=== PATIENT | female | born 1995 | race African-American/Black ===

== ENCOUNTER 2017-12-20 14:52 | Inpatient (IN) ==
[2017-12-20] MEDS: LACTATED RINGERS 1,000 ML IV SCH (15:20)
[2017-12-20] MEDS ORDERED: LACTATED RINGERS 500 ML IV PRN (15:28)
[2017-12-20] MEDS ORDERED: DINOPROSTONE VAG GEL 10 MG SYRINGE VAG ONE (15:32)
[2017-12-20 16:00] LABS: Basophils % 0.3 % (0.0-0.8); Eosinophils # 0.1 10*3/uL (0.0-0.87); Eosinophils % 0.8 % (0.00-10.9); Hematocrit 36.5 VOL% (35.7-47.0); Hemoglobin 11.9 GM/DL (12.0-16.0); Immature Granulocytes % 0.6 %; Immature Granulocytes Absolute 0.04 #; Lymphocytes # 1.3 10*3/uL (1.4-4.0); Mean Corpuscular HGB Conc 32.6 GM/DL (32-36); Mean Corpuscular Hemoglobin 31 PG (27-34); Mean Corpuscular Volume 95.5 FL (87-102); Mean Platelet Volume 10.4 FL (9.6-12.0); Monocytes # 0.5 10*3/uL (0.11-0.8); Monocytes % 8.4 % (1.7-12.7); Neutrophils # 4.3 10*3/uL (1.4-7.4); Neutrophils % 68.9 % (38.7-73.9); Platelet Count 251 T/CUMM (130-400); Red Blood Count 3.82 MC/CUMM (3.8-5.5); Red Cell Distribution Width 14.1 % (9.3-17.3); White Blood Count 6.3 T/CUMM (4-12)
[2017-12-20 16:23] LABS: Albumin 3.1 G/DL (3.4-5.0); Bilirubin,Total 0.4 MG/DL (0.2-1.0); Calcium 9.1 MG/DL (8.5-10.1); Osmolality,Calculated 272.8 MOS/KG (273-304); Total Protein 7.1 G/DL (6.4-8.3)
[2017-12-21] MEDS: MEPERIDINE 50 MG/1 ML VIAL IV PRN ×3 (00:33→04:55)
[2017-12-21] MEDS: ONDANSETRON 4 MG/2 ML VIAL IV PRN ×4 (00:34→19:36)
[2017-12-21] MEDS ORDERED: AMPICILLIN INJ 2,000 MG in SODIUM CHLORIDE 0.9% 100 ML IV ONE (02:00)
[2017-12-21] MEDS ORDERED: OXYTOCIN/LR 20 UNIT/1,000 ML BAG IV SCH (02:00)
[2017-12-21] MEDS ORDERED: FAMOTIDINE 20 MG/2 ML VIAL IV ONE (04:35)
[2017-12-21] MEDS ORDERED: CITRIC ACID/SODIUM CITRATE 30 ML UDCUP PO ONE (04:35)
[2017-12-21] MEDS ORDERED: ePHEDrine 50 MG/ML AMP IV PRN (04:35)
[2017-12-21] MEDS ORDERED: fentaNYL 2 MCG/ROPIV 0.2% EPID 150 ML EPIDURAL SCH (05:00)
[2017-12-21] MEDS ORDERED: AMPICILLIN INJ 1,000 MG in SODIUM CHLORIDE 0.9% 100 ML IV SCH (06:00)
[2017-12-21] MEDS: LACTATED RINGERS 1,000 ML IV SCH (06:11)
[2017-12-21] MEDS ORDERED: BUPIVACAINE SPINAL 0.75% 2 ML AMP SPINAL ONE (06:53)
[2017-12-21 09:23] LABS: Apearance,Urine CLEAR (Clear); Bilirubin,Urine Negative (Negative); Blood, Urine Small mg/dL (Negative); Glucose,Urine (UA) Negative (Negative); Ketones,Urine Negative (Negative); Mucus,Urine Occasional /LPF (Occasional); Nitrite,Urine Negative (Negative); Protein,Urine Negative; RBC,Urine 11 /HPF (0-4); Squamous Epithelial Cell,Urine Occasional /HPF (0-10); Urine Color Yellow (Yellow); Urine Specific Gravity 1.025 (1.001-1.035); Urine Urobilinogen < 2.0 EU/DL (0.2-1.0); WBC,Urine 1 /HPF (0-6)
[2017-12-21] MEDS ORDERED: ceFAZolin 2,000 MG in PREMIX 1 EACH IV ONE (10:15)
[2017-12-21] MEDS ORDERED: OXYTOCIN 10 UNIT/ML VIAL ONE ×2 (10:34→11:15)
[2017-12-21 10:45] LABS: Cord Arterial Blood HCO3 19.9 MMOL/L
[2017-12-21 10:48] LABS: Cord Venous Blood HCO3 20.9 MMOL/L; Cord Venous Blood PCO2 56.6 MMHG; Cord Venous Blood PO2 28.6
[2017-12-21] MEDS ORDERED: MORPHINE 10 MG/10 ML VIAL ONE (11:10)
[2017-12-21] MEDS ORDERED: ONDANSETRON 4 MG/2 ML VIAL ONE (11:10)
[2017-12-21] MEDS ORDERED: MIDAZOLAM 2 MG/2 ML VIAL ONE (11:10)
[2017-12-21] MEDS ORDERED: ROPIVACAINE 0.5% 30 ML VIAL ONE (11:10)
[2017-12-21] MEDS ORDERED: BENZOCAINE 20%/MENTHOL 0.5% SPRAY 56 GM CAN TOP PRN (12:58)
[2017-12-21] MEDS ORDERED: oxyCODONE/ACETAMINOPHEN 5-325 MG TABLET PO PRN ×2 (12:58)
[2017-12-21] MEDS ORDERED: WITCH HAZEL PADS 100/JAR TOP PRN (12:58)
[2017-12-21] MEDS ORDERED: OXYTOCIN 30 UNIT in DEXTROSE 5% LACTATED RINGERS 1,000 ML INJ ONE (12:58)
[2017-12-21] MEDS ORDERED: ACETAMINOPHEN 325 MG TABLET PO PRN (12:58)
[2017-12-21] MEDS ORDERED: HYDROCORTISONE 2.5% RECTAL CREAM 30 GM TUBE TOP PRN (12:58)
[2017-12-21] MEDS ORDERED: LANOLIN 50% CREAM 0.3 OZ TUBE TOP PRN (12:58)
[2017-12-21] MEDS ORDERED: OXYTOCIN/LR 30 UNIT/1,000 ML BAG IV ONE (13:16)
[2017-12-21] MEDS: ceFAZolin 2,000 MG in PREMIX 1 EACH IV SCH (18:12)
[2017-12-21] MEDS: DOCUSATE SODIUM 100 MG CAPSULE PO SCH (22:54)
[2017-12-22] MEDS ORDERED: LACTATED RINGERS 1,000 ML IV SCH
[2017-12-22] MEDS: ceFAZolin 2,000 MG in PREMIX 1 EACH IV SCH ×2 (02:37→09:07)
[2017-12-22 05:45] LABS: Basophils % 0.2 % (0.0-0.8); Eosinophils % 0.3 % (0.00-10.9); Hematocrit 34.1 VOL% (35.7-47.0); Immature Granulocytes % 0.3 %; Immature Granulocytes Absolute 0.03 #; Lymphocytes # 0.9 10*3/uL (1.4-4.0); Lymphocytes % 9.1 % (21.3-54.2); Mean Corpuscular HGB Conc 32.3 GM/DL (32-36); Mean Corpuscular Hemoglobin 31 PG (27-34); Mean Corpuscular Volume 94.7 FL (87-102); Monocytes # 0.8 10*3/uL (0.11-0.8); Monocytes % 7.5 % (1.7-12.7); Neutrophils # 8.5 10*3/uL (1.4-7.4); Neutrophils % 82.6 % (38.7-73.9); Platelet Count 202 T/CUMM (130-400); Red Cell Distribution Width 13.8 % (9.3-17.3); White Blood Count 10.3 T/CUMM (4-12)
[2017-12-22] MEDS: IBUPROFEN 800 MG TABLET PO PRN ×2 (09:06→20:37)
[2017-12-22] MEDS: DOCUSATE SODIUM 100 MG CAPSULE PO SCH ×2 (09:28→20:37)
[2017-12-22] MEDS: MAGNESIUM HYDROXIDE SUSP 30 ML UDCUP PO PRN ×2 (09:28→20:37)
[2017-12-22] MEDS: SIMETHICONE CHEW 80 MG TABLET PO PRN ×2 (09:32→20:51)
[2017-12-22] MEDS ORDERED: MEASLES/MUMPS/RUBELLA VACCINE 0.5 ML VIAL SUBCUT ONE (12:58)
[2017-12-22] MEDS ORDERED: DIPH/TET/ACEL PERT BOOSTER VACCINE 0.5 ML VIAL IM ONE (12:58)
[2017-12-22] MEDS ORDERED: RHO(D) IMMUNE GLOBULIN 300 MCG SYRINGE IM ONE (12:58)
[2017-12-22] MEDS: BISACODYL 10 MG SUPP RECTAL PRN (21:42)
[2017-12-23] MEDS: BISACODYL 10 MG SUPP RECTAL PRN (05:40)
[2017-12-23 08:18] VITALS: BP 134/92
[2017-12-23] MEDS: IBUPROFEN 800 MG TABLET PO PRN (08:57)
[2017-12-23] MEDS: DOCUSATE SODIUM 100 MG CAPSULE PO SCH (08:57)
== END 2017-12-23 11:45 | disposition home or self-care (01) | DRG 540 ==
LOC: N.LDOUT 14:52 → N.LD 14:53 → N.OB 12-22 08:17
PROVIDERS: ADMIT Obstetrics & Gynecology; ATTEND Obstetrics & Gynecology
PROC: LDCSECT (ICD-10-PCS; 2017-12-21 10:20)

== ENCOUNTER 2021-12-29 11:31 | Inpatient (IN) ==
[2021-12-29] MEDS ORDERED: CITRIC ACID/SODIUM CITRATE 30 ML UDCUP PO ONE (11:42)
[2021-12-29] MEDS ORDERED: ceFAZolin 2,000 MG/50 ML DUPLEX IV ONE (11:42)
[2021-12-29] MEDS ORDERED: FAMOTIDINE 20 MG/2 ML VIAL IV ONE (11:42)
[2021-12-29] MEDS ORDERED: OXYTOCIN 10 UNIT/ML VIAL IM ONE (11:42)
[2021-12-29] MEDS ORDERED: OXYTOCIN/LR 30 UNIT/1,000 ML BAG IV ONE (11:42)
[2021-12-29] MEDS ORDERED: OXYTOCIN/LR 20 UNIT/1,000 ML BAG IV ONE ×2 (11:46→16:20)
[2021-12-29] MEDS: LACTATED RINGERS 1,000 ML IV SCH ×2 (11:59→15:14)
[2021-12-29 12:16] LABS: Basophils % 0.2 % (0.0-0.8); Eosinophils % 0.5 % (0.00-10.9); Hematocrit 36.9 VOL% (35.7-47.0); Hemoglobin 11.8 GM/DL (12.0-16.0); Immature Granulocytes % 0.4 %; Immature Granulocytes Absolute 0.03 #; Lymphocytes # 1.1 10*3/uL (1.4-4.0); Lymphocytes % 13.9 % (21.3-54.2); Mean Corpuscular Volume 93.2 FL (87-102); Mean Platelet Volume 10.4 FL (9.6-12.0); Monocytes % 9.5 % (1.7-12.7); Neutrophils % 75.5 % (38.7-73.9); Platelet Count 276 T/CUMM (130-400); Red Blood Count 3.96 MC/CUMM (3.8-5.5); White Blood Count 8.2 T/CUMM (4-12)
[2021-12-29 12:39] LABS: Albumin 2.7 G/DL (3.4-5.0); Bilirubin,Total 0.4 MG/DL (0.20-1.00); Calcium 8.4 MG/DL (8.5-10.1); Osmolality,Calculated 270.7 MOS/KG (273-304); Potassium 2.8 MMOL/L (3.5-5.1); Total Protein 7.7 G/DL (6.4-8.2)
[2021-12-29] MEDS ORDERED: miSOPROStoL 200 MCG TABLET ONE (13:33)
[2021-12-29] MEDS ORDERED: METHYLERGONOVINE 0.2 MG/1 ML AMP ONE (13:33)
[2021-12-29] MEDS ORDERED: BUPIVACAINE SPINAL 0.75% 2 ML AMP SPINAL ONE (15:17)
[2021-12-29] MEDS ORDERED: ONDANSETRON 4 MG/2 ML VIAL ONE (15:17)
[2021-12-29] MEDS ORDERED: LACTATED RINGERS 1,000 ML IV ONE (15:55)
[2021-12-29] MEDS ORDERED: KETOROLAC 30 MG/1 ML VIAL ONE (15:55)
[2021-12-29 16:12] LABS: Mucus,Urine Occasional /LPF (Occasional); RBC,Urine <1 /HPF (0-4)
[2021-12-29 16:13] LABS: Bilirubin,Urine Negative (Negative); Blood, Urine Trace mg/dL (Negative); Glucose,Urine (UA) Negative (Negative); Ketones,Urine 80 mg/dL (Negative); Nitrite,Urine Negative (Negative); Protein,Urine 7 MG/DL; Urine Appearance Clear (Clear); Urine Color Light Yellow (Yellow); Urine Specific Gravity 1.015 (1.001-1.035); Urine Urobilinogen < 2.0 EU/DL (<2.0)
[2021-12-29 16:17] LABS: Cord Venous Blood HCO3 19.6 MMOL/L; Cord Venous Blood PCO2 36.6 MMHG; Cord Venous Blood PO2 41.3
[2021-12-29] MEDS ORDERED: ONDANSETRON 4 MG/2 ML VIAL IV PRN (16:20)
[2021-12-29] MEDS ORDERED: RHO(D) IMMUNE GLOBULIN 300 MCG SYRINGE IM ONE (16:20)
[2021-12-29] MEDS ORDERED: MAGNESIUM HYDROXIDE SUSP 30 ML UDCUP PO PRN (16:20)
[2021-12-29] MEDS ORDERED: ACETAMINOPHEN 325 MG TABLET PO PRN (16:20)
[2021-12-29] MEDS ORDERED: LACTATED RINGERS 1,000 ML IV SCH (16:30)
[2021-12-29] MEDS: ACETAMINOPHEN 500 MG TABLET PO SCH (20:17)
[2021-12-29] MEDS ORDERED: KETOROLAC 30 MG/1 ML VIAL IV SCH (22:00)
[2021-12-29] MEDS: DOCUSATE SODIUM 100 MG CAPSULE PO SCH (22:30)
[2021-12-29] MEDS: IBUPROFEN 800 MG TABLET PO PRN (22:30)
[2021-12-29] MEDS: acetaZOLAMIDE 250 MG TABLET PO SCH (23:26)
[2021-12-30 00:21] LABS: Basophils % 0.4 % (0.0-0.8); Eosinophils % 0.4 % (0.00-10.9); Hematocrit 34.6 VOL% (35.7-47.0); Hemoglobin 10.9 GM/DL (12.0-16.0); Immature Granulocytes % 1.1 %; Immature Granulocytes Absolute 0.08 #; Lymphocytes # 1.1 10*3/uL (1.4-4.0); Lymphocytes % 14.8 % (21.3-54.2); Mean Corpuscular HGB Conc 31.5 GM/DL (32-36); Mean Corpuscular Volume 94.8 FL (87-102); Mean Platelet Volume 10.4 FL (9.6-12.0); Monocytes % 10.2 % (1.7-12.7); Neutrophils % 73.1 % (38.7-73.9); Platelet Count 228 T/CUMM (130-400); Red Blood Count 3.65 MC/CUMM (3.8-5.5); Red Cell Distribution Width 16.9 % (9.3-17.3); White Blood Count 7.4 T/CUMM (4-12)
[2021-12-30] MEDS ORDERED: diphenhydrAMINE 50 MG/1 ML VIAL IV ONE (00:37)
[2021-12-30] MEDS: POTASSIUM CHLORIDE 20 MEQ TABLET PO SCH ×4 (00:44→06:32)
[2021-12-30] MEDS: ACETAMINOPHEN 500 MG TABLET PO SCH (03:50)
[2021-12-30] MEDS: KETOROLAC 30 MG/1 ML VIAL IV SCH ×2 (05:45→10:40)
[2021-12-30 06:40] LABS: Barbiturates Screen,Urine Negative (Negative); Benzodiazepines Screen,Urine Negative (Negative); Cannabinoid Screen,Urine Negative (Negative); Opiate Screen,Urine Negative (Negative); Phencyclidine Screen,Urine Negative (Negative)
[2021-12-30] MEDS ORDERED: POTASSIUM CHLORIDE 20 MEQ TABLET PO ONE (08:00)
[2021-12-30 08:13] LABS: Basophils % 0.4 % (0.0-0.8); Eosinophils # 0.1 10*3/uL (0.0-0.87); Eosinophils % 1.2 % (0.00-10.9); Hematocrit 34.9 VOL% (35.7-47.0); Hemoglobin 11.1 GM/DL (12.0-16.0); Immature Granulocytes % 0.6 %; Immature Granulocytes Absolute 0.04 #; Lymphocytes # 1.1 10*3/uL (1.4-4.0); Lymphocytes % 15.7 % (21.3-54.2); Mean Corpuscular HGB Conc 31.8 GM/DL (32-36); Mean Corpuscular Volume 93.1 FL (87-102); Mean Platelet Volume 10.1 FL (9.6-12.0); Monocytes % 9.9 % (1.7-12.7); Neutrophils % 72.2 % (38.7-73.9); Platelet Count 241 T/CUMM (130-400); Red Blood Count 3.75 MC/CUMM (3.8-5.5); White Blood Count 7.3 T/CUMM (4-12)
[2021-12-30] MEDS: acetaZOLAMIDE 250 MG TABLET PO SCH ×2 (09:13→20:00)
[2021-12-30] MEDS: SIMETHICONE CHEW 80 MG TABLET PO PRN ×2 (09:13→20:00)
[2021-12-30] MEDS: DOCUSATE SODIUM 100 MG CAPSULE PO SCH ×2 (09:13→21:40)
[2021-12-30] MEDS: MULTIVITAMIN (PRENATAL) TABLET PO SCH (09:13)
[2021-12-30] MEDS: METOCLOPRAMIDE 10 MG TABLET PO SCH ×4 (10:46→21:39)
[2021-12-30] MEDS: POTASSIUM CHLORIDE 20 MEQ TABLET PO PRN ×4 (13:49→19:59)
[2021-12-30] MEDS: IBUPROFEN 800 MG TABLET PO PRN (19:59)
[2021-12-31] MEDS ORDERED: guaiFENesin 200 MG/10 ML UDCUP PO PRN (00:15)
[2021-12-31] MEDS: POTASSIUM CHLORIDE 20 MEQ TABLET PO PRN (03:26)
[2021-12-31 07:22] VITALS: BP 129/81
[2021-12-31] MEDS ORDERED: INFLUENZA VIRUS VACCINE 0.5 ML SYRINGE IM ONE (09:00)
[2021-12-31] MEDS: acetaZOLAMIDE 250 MG TABLET PO SCH (09:29)
[2021-12-31] MEDS: DOCUSATE SODIUM 100 MG CAPSULE PO SCH (09:29)
[2021-12-31] MEDS: MULTIVITAMIN (PRENATAL) TABLET PO SCH (09:29)
[2021-12-31] MEDS: IBUPROFEN 800 MG TABLET PO PRN (09:30)
== END 2021-12-31 12:05 | disposition home or self-care (01) | DRG 540 ==
LOC: N.LD 11:31 → N.OB 21:50
PROVIDERS: ADMIT Obstetrics & Gynecology; ATTEND Obstetrics & Gynecology
PROC: LDCSECT (ICD-10-PCS; 2021-12-29 15:30)